=== PATIENT | male | born 1945 ===

== ENCOUNTER 2016-12-16 13:20 | Emergency (ER) | payer BC, MEDICARE ==
[2016-12-16 13:44] VITALS: BP 132/65; PULSE 91; RESP 18; O2SAT 100
[2016-12-16] MEDS ORDERED: Sodium Chloride 0.9% 500 ML IV STA (14:36)
[2016-12-16] MEDS ORDERED: Clindamycin 600 MG in Sodium Chloride 0.9% 100 ML IVPB STA (14:36)
--- NOTE | 2016-12-16 14:38 | ED PDOC ---
Lower Extremity Pain/Injury Time Seen by Provider: 12/16/16 14:12 Chief Complaint (Nursing): Lower Extremity Problem/Injury Chief Complaint (Provider): Knee pain History Per: Patient History/Exam Limitations: no limitations Onset/Duration Of Symptoms: Days (1 month) Current Symptoms Are (Timing): Still Present Additional Complaint(s): Pt. with left knee pain. Was here approx 1 month ago for knee pain and dx with possible abscess on the knee. Pt. did not want to be admitted and was dc with clinda. He fu with his orthopedic doctor and had purulent dc drained and continued clinda. Got better. Then again recently got swelling of the left knee and seen by the ortho doctor 2 days ago. He said will need more testing and sent to a specialty hospital in [place]. 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 He is here today as he wants antibiotics. Pt. had 2 knee surgeries, last 6 months ago in [facility]. Pt. denies numbness, tingles, calf pain, dyspnea. No fever. Has pain to the knee left and swelling. Difficulty moving it fully. Ambulated with pain. Past Medical History Reviewed: Nursing Documentation, Vital Signs Vital Signs: Last Vital Signs Temp 98.3 F 12/16/16 13:43 Pulse 91 H 12/16/16 13:43 Resp 18 12/16/16 13:43 BP 132/65 12/16/16 13:43 Pulse Ox 100 12/16/16 13:43 - Medical History PMH: Diabetes, HTN - Surgical History Other surgeries: knee surgery x2 - Family History Family History: States: Unknown Family Hx - Social History Current smoker - smoking cessation education provided: No Alcohol: None Drugs: Denies - Home Medications Home Medications: Ambulatory Orders Medication Instructions Recorded Clindamycin [Cleocin] 300 mg PO TID #21 cap 11/15/16 traMADol [Ultram] 50 mg PO TID PRN #12 tab 11/15/16 - Allergies Allergies/Adverse Reactions: Allergies Allergy/AdvReac Type Severity Reaction Status Date / Time Penicillins Allergy ANAPHYLAXIS Verified 11/15/16 13:25 Review of Systems ROS Statement: Except As Marked, All Systems Reviewed And Found Negative Musculoskeletal: Positive for: Leg Pain Skin: Positive for: Other (swelling of knee and bumps on knee that are abscess per pt.) Physical Exam - Reviewed Nursing Documentation Reviewed: Yes Vital Signs Reviewed: Yes - Physical Exam Appears: Positive for: Non-toxic, No Acute Distress Head Exam: Positive for: ATRAUMATIC, NORMAL INSPECTION, NORMOCEPHALIC Eye Exam: Positive for: EOMI, Normal appearance, PERRL ENT: Positive for: Normal ENT Inspection Neck: Positive for: Normal, Painless ROM Cardiovascular/Chest: Positive for: Regular Rate, Rhythm Respiratory: Positive for: CNT, Normal Breath Sounds Pulses-Dorsalis Pedis (L): 2+ Pulses-Post. Tibialis (L): 2+ Gastrointestinal/Abdominal: Positive for: Normal Exam, Bowel Sounds, Soft. Negative for: Tenderness Back: Positive for: Normal Inspection. Negative for: L CVA Tenderness, R CVA Tenderness Extremity: Positive for: Tenderness (L knee diffuse with 1cm raised fluctuant area anterior medial that is not erythematous), Other (popliteal pulse 2+ L). Negative for: Calf Tenderness Neurologic/Psych: Positive for: Alert, Oriented - Laboratory Results Result Diagrams: 12/16/16 15:20 12/16/16 15:20 Interpretation Of Abn Labs: no acute - ECG O2 Sat by Pulse Oximetry: 100 Pulse Ox Interpretation: Normal - Progress ED Course And Treament: 1452: Stable. AAOx3. Spoke with Dr. Patiño. Pt. well known to him. States he has cultured this bubble on his knee 2 days ago. So far no growth. He has seen a sling operator yesterday. He is to see a specialist Dr. Karthikeyan rawls for further evaluation. Per. Dr. Patiño pt. bubble on knee is of unknown cause and is being worked up extensively. Wants pt. to get basic blood work and dc if no high wbc. Pt. is suppose to see Dr. Muha. Joseph who has rx clinda that pt. is on. Can fu with Dr. Patiño Monday. 1733: Stable. AAOx3. Pt. to fu with Dr. Faye, olimpia Damon, and Dr. Napier. Pt. continue clinda as rx by Marisol who he saw few days ago. Disposition - Clinical Impression Clinical Impression: Abscess - Patient ED Disposition Is Patient to be Admitted: No Counseled Patient/Family Regarding: Studies Performed, Diagnosis, Need For Followup - Disposition Referrals: Rani Barbosa MD [Staff Provider] - 12/19/16 Disposition: Routine/Home Disposition Time: 17:35 Condition: STABLE Additional Instructions: Return if not better in 3 days. See your orthopedic doctor and Dr. Napier Monday next week. Also Dr. Smith. Instructions: Abscess (ED)
[2016-12-16 15:30] LABS: BASO % 0.1 % (0.0-2.0); EOS % 0.6 % (0.0-4.0); HEMATOCRIT 37.3 % (35.0-51.0); LYMPH # 0.8 K/uL (1.0-4.3); LYMPH % 11.8 % (20.0-40.0); MEAN CORPUSCULAR HEMOGLOBIN 27.4 pg (27.0-31.0); MEAN CORPUSCULAR HGB CONC 32.6 g/dL (33.0-37.0); MEAN PLATELET VOLUME 9.2 fl (7.2-11.7); MONO # 0.4 K/uL (0.0-0.8); MONO % 5.3 % (0.0-10.0); NEUT # 5.8 K/uL (1.8-7.0); NEUT % 82.2 % (50.0-75.0); RED CELL DISTRIBUTION WIDTH 15.9 % (11.5-14.5)
[2016-12-16 15:48] LABS: ALKALINE PHOSPHATASE 102 U/L (38-126); ALT/SGPT 24 U/L (21-72); AST/SGOT 30 U/L (17-59); BILIRUBIN,TOTAL 1.3 mg/dl (0.2-1.3); BLOOD UREA NITROGEN 23 mg/dl (9-20); CARBON DIOXIDE 26 mmol/L (22-30); CHLORIDE 102 mmol/L (98-107); GFR AFRICAN-AMERICAN > 60; GLUCOSE,RANDOM 114 mg/dL (75-110); POTASSIUM 4.3 MMOL/L (3.6-5.0); SODIUM 141 mmol/l (132-148); TOTAL PROTEIN 7.9 G/DL (6.3-8.2)
[2016-12-16 15:49] LABS: PARTIAL THROMBOPLASTIN TIME 30.2 SECONDS (23.3-32.5)
[2016-12-16 16:06] LABS: VENOUS BLOOD GAS BASE EXCESS 2.4 mmol/L (0.0-2.0); VENOUS BLOOD GAS PCO2 51 mmHg (40-60); VENOUS BLOOD PH 7.36 (7.32-7.43)
[2016-12-16 18:18] VITALS: TEMP 98.3
== END 2016-12-16 17:50 | disposition home or self-care (01) ==
LOC: H.ER 13:20
DX: L02.91 Cutaneous abscess, unspecified (principal); E11.9 Type 2 diabetes mellitus without complications; I10 Essential (primary) hypertension
CPT/HCPCS: 80053; 82803; 85025; 85610; 85730; 87040; 96360; 96365; 99284; J7040

== ENCOUNTER 2017-09-13 13:27 | Inpatient (IN) | payer MEDICARE, OTHER ==
[2017-09-13 13:38] VITALS: BMI 23.8
[2017-09-13] MEDS ORDERED: Naloxone 0.4 mg/ml Inj (Adult) IVP STA (13:39)
[2017-09-13] MEDS ORDERED: Naloxone 0.4 mg/ml Inj (Adult) ONE (13:41)
[2017-09-13] MEDS ORDERED: Sodium Chloride 0.9% 1,000 ML IV SCH (13:45)
--- NOTE | 2017-09-13 13:47 | ED PDOC ---
HPI: General Adult Time Seen by Provider: 09/13/17 13:35 Chief Complaint (Provider): Altered Mental Status History Per: Patient History/Exam Limitations: clinical condition Current Symptoms Are (Timing): Still Present Additional Complaint(s): Pt. was found sleeping and not responding to police while at the [facility]. Pt. not responding to verbal commands, but response with withdrawing. No tpa as pt. could have fallen and hurt head, onset is unclear but likely symptoms ongoing for a long time. NIHSS Stroke Scale - Date/Time Evaluation Performed Date Performed: 09/13/17 Time Performed: 14:00 When Was NIHSS Performed: Baseline - How Severe is the Stroke Level of Consciousness: 2=Obtunded LOC to Questions: 2=Neither correct LOC to commands: 2=Neither correct Best Gaze: 0=Normal Visual: 0=No visual loss Facial: 0=Normal Motor Arm - Left: 2=Falls before 10 sec Motor Arm - Right: 2=Falls before 10 sec Motor Leg - Left: 2=Falls before 5 sec Motor Leg - Right: 2=Falls before 5 sec Limb Ataxia: 2=Present both Sensory: 0=Normal Best Language: 2=Severe aphasia Dysarthia: 2=Severe, near unintelligible or worse Extinction & Inattention (Neglect): 0=Normal, no object Score: 20 rTPA Inclusion/Exclusion - Refusal of Treatment Patient Refused Treatment: No - Inclusion Criteria for Altepase Patient is 18 years or Older: Yes The Clinical Diagnosis of Ischemic Stroke That is Causing a Potentially Disabling Neurological Deficit: No Time of Onset is Well Established to be Less Than 270 Minute Before Treatment Would Begin: No Risk/Benefit Discussed With Patient/Family Member Present: No Past Medical History Reviewed: Historical Data, Nursing Documentation, Vital Signs - Medical History PMH: Dementia, HTN - Surgical History Other surgeries: knee surgery - Family History Family History: States: Unknown Family Hx - Home Medications Home Medications: Ambulatory Orders Medication Instructions Recorded Donepezil [Aricept] 10 mg PO HS 09/13/17 Doxycycline Hyclate [Doxycycline 100 mg PO BID 09/13/17 Hyclate] Gabapentin [Neurontin] 100 mg PO HS 09/13/17 Levothyroxine [Synthroid] 175 mcg PO DAILY 09/13/17 Solifenacin Succinate [Vesicare] 10 mg PO DAILY 09/13/17 Tamsulosin [Flomax] 0.8 mg PO QPM 09/13/17 Travoprost [Travatan Z] 1 drop EACHEYE HS 09/13/17 - Allergies Allergies/Adverse Reactions: Allergies Allergy/AdvReac Type Severity Reaction Status Date / Time Penicillins Allergy ANAPHYLAXIS Verified 09/13/17 13:44 Review of Systems Review Of Systems: ROS cannot be obtained secondary to pt's inabilty to answer questions. Physical Exam - Reviewed Nursing Documentation Reviewed: Yes Vital Signs Reviewed: Yes - Physical Exam Appears: Positive for: Uncomfortable Head Exam: Positive for: ATRAUMATIC, NORMAL INSPECTION, NORMOCEPHALIC Skin: Positive for: Normal Color, Warm, DRY Eye Exam: Positive for: PERRL. Negative for: Periorbital tenderness ENT: Positive for: Normal ENT Inspection, Other (gag present). Negative for: Nasal Congestion, Pharyngeal Erythema, Tonsillar Exudate Neck: Positive for: Supple, Trachea Midline Cardiovascular/Chest: Positive for: Regular Rate, Rhythm Respiratory: Positive for: CNT, Normal Breath Sounds Gastrointestinal/Abdominal: Positive for: Bowel Sounds, Soft. Negative for: Tenderness Back: Positive for: Normal Inspection. Negative for: L CVA Tenderness, R CVA Tenderness Extremity: Negative for: Tenderness, Pedal Edema Neurologic/Psych: Positive for: Other (moving extremities some on his own; movement present with pain.). Negative for: Alert, Oriented - Laboratory Results Interpretation Of Abn Labs: no acute - ECG ECG: Positive for: Interpreted By Me, Viewed By Me ECG Rhythm: Positive for: Normal QRS, Sinus Rhythm, Nonspecific Changes - Radiology X-Ray: Read By Radiologist X-Ray Interpretation: No Acute Disease - CT Scan/US head Other Rad Studies (CT/US): Read By Radiologist Other Rad Interpretation: no acute - Progress ED Course And Treament: 1415: Narcan was given. Pt. moving all extremities. Still no fluent verbal communication. Spoke with daughter and . States he was been diagnosed with dementia for months. Has been sleep and weak off and on for a while. Came to the ED 6 years ago for the same and didn't finding anything at that time. Has hx of strokes, htn, dementia, lyme dz, thyroid dz. 1529: wants lumbar x-ray. Spoke with Harish for Dr. Barbosa. Will admit tele. Dr. Ha for neurology. Stable. Pt. moving all extremities. More responsive. - Critical Care Total Time (In Min): 30 Documented Critical Care: Time excludes all time spent performint seperately billable procedures Disposition - Clinical Impression Clinical Impression: Altered mental status - Patient ED Disposition Is Patient to be Admitted: No Counseled Patient/Family Regarding: Studies Performed, Diagnosis - Disposition Disposition Time: 15:30 Condition: FAIR - Pt Status Changed To: Hospital Disposition Of: Inpatient - Admit Certification Admit to Inpatient:: After my assessment, the patient will require hospitalization for at least two midnights. This is because of the severity of symptoms shown, intensity of services needed, and/or the medical risk in this patient being treated as an outpatient. - POA Present On Arrival: Falls Or Trauma (?)
--- NOTE | 2017-09-13 13:58 | CT ---
PROCEDURE: CT HEAD WITHOUT CONTRAST. HISTORY: headache COMPARISON: 09/01/2011 CT head outside exam TECHNIQUE: Axial computed tomography images were obtained through the head/brain without intravenous contrast. Radiation dose: Total exam DLP = 1289 mGy-cm. This CT exam was performed using one or more of the following dose reduction techniques: Automated exposure control, adjustment of the mA and/or kV according to patient size, and/or use of iterative reconstruction technique. FINDINGS: HEMORRHAGE: No intracranial hemorrhage. BRAIN: No mass effect or edema. Cerebral atrophy and bilateral periventricular and subcortical white matter hypodensity compatible with chronic microvascular ischemic changes. These appearances are similar dating back to 2010. VENTRICLES: The mild ventriculomegaly is commensurate with the degree of atrophy and similar-appearing CALVARIUM: Unremarkable. PARANASAL SINUSES: Minimal mucosal thickening of the ethmoid ill air cells primarily -this also ethmoidal sinus postsurgical changes suggested an bilateral antrostomies noted. Findings are similar MASTOID AIR CELLS: Unremarkable as visualized. No inflammatory changes. OTHER FINDINGS: None. IMPRESSION: Cerebral atrophy andbilateral periventricular and subcortical white matter hypodensity compatible with chronic microvascular ischemic changes. These appearances are similar dating back to 2010. No interval intracranial hemorrhage or mass effect appreciated no gross interval changes in the overall white matter hypodense appearance. Mild ethmoidal sinus inflammatory changes -postsurgical changes - similar.
[2017-09-13 13:59] LABS: BASO # 0.1 K/uL (0.0-0.2); BASO % 0.4 % (0.0-2.0); EOS # 0.2 K/uL (0.0-0.7); EOS % 1.4 % (0.0-4.0); HEMOGLOBIN 12.4 g/dL (12.0-18.0); LYMPH # 2.7 K/uL (1.0-4.3); LYMPH % 22.4 % (20.0-40.0); MEAN CELL VOLUME 85.8 fl (80.0-94.0); MEAN CORPUSCULAR HEMOGLOBIN 27.9 pg (27.0-31.0); MEAN CORPUSCULAR HGB CONC 32.6 g/dL (33.0-37.0); MEAN PLATELET VOLUME 9.1 fl (7.2-11.7); MONO # 0.7 K/uL (0.0-0.8); MONO % 5.7 % (0.0-10.0); NEUT # 8.6 K/uL (1.8-7.0); NEUT % 70.1 % (50.0-75.0); RBC 4.43 Mil/uL (4.40-5.90); RED CELL DISTRIBUTION WIDTH 15.7 % (11.5-14.5); WHITE BLOOD COUNT 12.2 K/uL (4.8-10.8)
[2017-09-13 14:18] LABS: ALB/GLOB RATIO 1.2 (1.0-2.1); ALBUMIN 4.1 g/dL (3.5-5.0); ALT/SGPT 30 U/L (21-72); AST/SGOT 25 U/L (17-59); BLOOD UREA NITROGEN 20 mg/dl (9-20); CALCIUM 8.9 mg/dL (8.4-10.2); GFR AFRICAN-AMERICAN > 60; GFR NON-AFRICAN AMERICAN 54; HDL CHOLESTEROL 44 MG/DL (30-70)
[2017-09-13 14:28] LABS: LDL CHOLESTEROL 83 mg/dL (0-129)
[2017-09-13 14:35] LABS: INR 1.2 (0.9-1.2); PARTIAL THROMBOPLASTIN TIME 29.3 Seconds (25.6-37.1); PROTHROMBIN TIME 12.8 Seconds (9.8-13.1)
--- NOTE | 2017-09-13 15:05 | RAD ---
HISTORY: altered COMPARISON: No prior. FINDINGS: LUNGS: Shallow lung volumes. No consolidation. The perihilar bronchovascular markings and interstitial markings are diffusely of fairly symmetrically mildly prominent ; chronicity unknown. PLEURA: No significant pleural effusion identified, no pneumothorax apparent. CARDIOVASCULAR: Mild cardiomegaly. Ectatic thoracic aorta OSSEOUS STRUCTURES: Thoraco lumbar spondylosis. Right shoulder arthrosis. Apparent partial resection of the left lateral clavicle VISUALIZED UPPER ABDOMEN: Normal. OTHER FINDINGS: None. IMPRESSION: No dense consolidation. No gross congestive heart failure. The heart is mildly enlarged and thoracic aortic is ectatic. The central pulmonary vasculature/interstitial markings are also mildly prominent chronicity of these latter 3 findings unknown. Postsurgical changes lateral left clavicle Right shoulder arthrosis and thoracic spondylosis
[2017-09-13 16:30] LABS: ABG ALLEN TEST YES; ARTERIAL BLOOD GAS HCO3 24.5 mmol/L (21-28); ARTERIAL BLOOD GAS O2 SAT 97.8 % (95-98); ARTERIAL BLOOD GAS PCO2 33 mm/Hg (35-45); ARTERIAL BLOOD GAS PH 7.45 (7.35-7.45); ARTERIAL BLOOD GAS PO2 71 mm/Hg (80-100); ARTERIAL BLOOD GAS TCO2 23.9 mmol/L (22-28)
--- NOTE | 2017-09-13 17:03 | RAD ---
PROCEDURE: Radiographs of the Lumbar Spine. HISTORY: back pain COMPARISON: No prior. FINDINGS: BONES: Cervical spine straightening. No listhesis. No fracture. Diffuse thoraco lumbar spondylosis DISC SPACES: Diffuse thoraco lumbar disc space narrowing OTHER FINDINGS: Rightward mild convexity of the lumbar spine. Minimal bilateral sclerotic SI joint arthrosis right greater than left. Degenerative type wedging . No suspect compression fracture. IMPRESSION: Senescent spondylosis and degenerative disc disease changes. . No suspect fracture
[2017-09-13 17:25] LABS: BARBITURATES, UR NEGATIVE (NEGATIVE); BENZODIAZEPINES, UR NEGATIVE (NEGATIVE); OPIATES, UR NEGATIVE (NEGATIVE); PHENCYCLIDINE, UR NEGATIVE (NEGATIVE)
[2017-09-13 17:37] LABS: SQUAMOUS EPITHIAL 1 /hpf (0-5); URINE BACTERIA RARE (<OCC); URINE BILIRUBIN NEGATIVE (NEGATIVE); URINE BLOOD NEGATIVE (NEGATIVE); URINE CLARITY SLIGHTY-CLOUDY (Clear); URINE COLOR YELLOW (YELLOW); URINE GLUCOSE (UA) NEG (Normal); URINE LEUKOCYTE ESTERASE NEG Leu/uL (Negative); URINE NITRATE NEGATIVE (NEGATIVE); URINE PROTEIN 30 mg/dL (NEGATIVE); URINE UROBILINOGEN 0.2-1.0 mg/dL (0.2-1.0)
--- NOTE | 2017-09-13 20:44 | MRI ---
EXAM: MR Head Without Intravenous Contrast EXAM DATE/TIME: 09/13/2017 4:12 PM CLINICAL HISTORY: 72 years old, male; Signs and symptoms; Altered mental status/memory loss; Age related cognitive decline; Additional info: AMS TECHNIQUE: Magnetic resonance images of the head/brain without intravenous contrast in multiple planes. COMPARISON: Prior MRI of the brain of 07/03/2017 FINDINGS: LIMITATIONS: Mild to moderate streak/motion artifact. BRAIN: Extensive, confluent areas of increased T2 and FLAIR signal again seen in the white matter bilaterally, not significantly changed in appearance since the prior exam, most likely representing marked chronic small vessel ischemic changes, in a patient of this age. Stable appearance of susceptibility artifact in the the basal ganglia bilaterally, most likely secondary to physiologic calcification. Diffuse, marked, age-related cortical atrophy and ventriculomegaly. No other significant abnormality identified. No evidence of restricted diffusion/acute infarct. No acute extra-axial fluid collections visualized. No evidence of significant mass effect within the brain. VENTRICLES: See above. Cavum septum pellucidum, a normal variant. BONES/JOINTS: No acute bony abnormality identified. SINUSES: Mild mucosal thickening in the bilateral ethmoid sinuses. MASTOID AIR CELLS: Mastoid air cells appear clear. ORBITS: No acute intraorbital abnormality seen. IMPRESSION: - No evidence of acute infarct or other significant acute intracranial abnormality. - Extensive white matter signal abnormality, most likely secondary to marked chronic small vessel ischemic changes, in a patient of this age. - See above for remaining findings.
[2017-09-13] MEDS: Latanoprost 0.005% Opht SOUTION OU SCH (22:15)
[2017-09-13 23:46] LABS: MAGNESIUM 1.9 MG/DL (1.6-2.3)
[2017-09-14 06:52] LABS: BASO % 0.3 % (0.0-2.0); EOS # 0.2 K/uL (0.0-0.7); EOS % 2.4 % (0.0-4.0); HEMOGLOBIN 11.5 g/dL (12.0-18.0); LYMPH # 1.7 K/uL (1.0-4.3); LYMPH % 24.3 % (20.0-40.0); MEAN CELL VOLUME 85.3 fl (80.0-94.0); MEAN CORPUSCULAR HEMOGLOBIN 28.3 pg (27.0-31.0); MEAN CORPUSCULAR HGB CONC 33.2 g/dL (33.0-37.0); MEAN PLATELET VOLUME 9.2 fl (7.2-11.7); MONO # 0.5 K/uL (0.0-0.8); NEUT # 4.5 K/uL (1.8-7.0); RBC 4.07 Mil/uL (4.40-5.90); RED CELL DISTRIBUTION WIDTH 15.1 % (11.5-14.5); WHITE BLOOD COUNT 6.9 K/uL (4.8-10.8)
[2017-09-14 06:57] LABS: ALB/GLOB RATIO 1.1 (1.0-2.1); ALBUMIN 3.5 g/dL (3.5-5.0); ALT/SGPT 30 U/L (21-72); AST/SGOT 31 U/L (17-59); BLOOD UREA NITROGEN 14 mg/dl (9-20); CALCIUM 8.8 mg/dL (8.4-10.2); GFR AFRICAN-AMERICAN > 60; GFR NON-AFRICAN AMERICAN > 60
--- NOTE | 2017-09-14 07:20 | CP.PCM.HP ---
History of Present Illness - History of Present Illness History of Present Illness: pt admitted for syncope yesterday. 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 no f/c, n/v/d. mri/ct/xr noted. 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, white matter dz, "agent orange poisoning" at present full rom, no speech change, no facial droop Present on Admission - Present on Admission Any Indicators Present on Admission: No Review of Systems - Neurological Neurological: As Per HPI, Syncope Past Patient History - Past Social History Smoking Status: Never Smoked - CARDIAC Hx Cardiac Disorders: Yes Hx Hypertension: Yes - PULMONARY Hx Respiratory Disorders: No - NEUROLOGICAL Hx Dementia: Yes - HEENT Hx Glaucoma: Yes - RENAL Hx Chronic Kidney Disease: No Hx Dialysis: No - ENDOCRINE/METABOLIC Hx Hypothyroidism: Yes Other/Comment: full thyroid removed - HEMATOLOGICAL/ONCOLOGICAL Hx Blood Disorders: No Hx AIDS: No Hx Human Immunodeficiency Virus (HIV): No - INTEGUMENTARY Hx Dermatological Problems: No - MUSCULOSKELETAL/RHEUMATOLOGICAL Hx Musculoskeletal Disorders: Yes Hx Falls: Yes - GASTROINTESTINAL Hx Gastrointestinal Disorders: No - GENITOURINARY/GYNECOLOGICAL Hx Prostate Problems: Yes - PSYCHIATRIC Hx Substance Use: No - SURGICAL HISTORY Hx Surgeries: Yes Hx Joint Replacement: Yes (Left knee) Hx Thyroidectomy: Yes - ANESTHESIA Hx Anesthesia: Yes Hx Anesthesia Reactions: No Hx Malignant Hyperthermia: No Has any member of the family had a problem w/ anesthesia?: No Meds Allergies/Adverse Reactions: Allergies Allergy/AdvReac Type Severity Reaction Status Date / Time Penicillins Allergy ANAPHYLAXIS Verified 09/13/17 13:44 Physical Exam - Constitutional Appears: Well, Non-toxic, No Acute Distress - Head Exam Head Exam: ATRAUMATIC, NORMAL INSPECTION, NORMOCEPHALIC - Eye Exam Eye Exam: EOMI, Normal appearance, PERRL Pupil Exam: NORMAL ACCOMODATION, PERRL - ENT Exam ENT Exam: Mucous Membranes Moist, Normal Exam - Neck Exam Neck exam: Positive for: Normal Inspection - Respiratory Exam Respiratory Exam: Clear to Auscultation Bilateral, NORMAL BREATHING PATTERN - Cardiovascular Exam Cardiovascular Exam: REGULAR RHYTHM, RRR, +S1, +S2 - GI/Abdominal Exam GI & Abdominal Exam: Normal Bowel Sounds, Soft. absent: Tenderness - Extremities Exam Extremities exam: Positive for: full ROM, normal capillary refill, normal inspection, pedal pulses present - Back Exam Back exam: NORMAL INSPECTION - Neurological Exam Neurological exam: Alert, CN II-XII Intact, Normal Gait, Oriented x3, Reflexes Normal - Psychiatric Exam Psychiatric exam: Normal Affect, Normal Mood - Skin Skin Exam: Dry, Intact, Normal Color, Warm Results - Vital Signs Recent Vital Signs: Last Vital Signs Temp 97.6 F 09/14/17 05:49 Pulse 71 09/14/17 05:49 Resp 18 09/14/17 05:49 BP 143/80 09/14/17 05:49 Pulse Ox 99 09/14/17 05:49 - Labs Result Diagrams: 09/14/17 05:40 09/14/17 05:40 Labs: Laboratory Results - last 24 hr 09/13/17 09/13/17 09/13/17 13:45 13:52 13:52 WBC 12.2 H D RBC 4.43 Hgb 12.4 Hct 38.0 MCV 85.8 MCH 27.9 MCHC 32.6 L RDW 15.7 H Plt Count 224 MPV 9.1 Neut % (Auto) 70.1 Lymph % (Auto) 22.4 [place] % (Auto) 5.7 Eos % (Auto) 1.4 Baso % (Auto) 0.4 Neut # 8.6 H Lymph # 2.7 Jerome # 0.7 Eos # 0.2 Baso # 0.1 PT INR APTT pCO2 pO2 HCO3 ABG pH ABG Total CO2 ABG O2 Saturation ABG Base Excess Watson Test ABG Potassium A-a O2 Difference Glucose Lactate FiO2 Sodium 138 Potassium 4.2 Chloride 104 Carbon Dioxide 25 Anion Gap 13 BUN 20 Creatinine 1.3 Est GFR ( Amer) > 60 Est GFR (Non-Af Amer) 54 Random Glucose 175 H Hemoglobin A1c Calcium 8.9 Phosphorus Magnesium Total Bilirubin 0.8 AST 25 ALT 30 Alkaline Phosphatase 81 Ammonia < 9 L Troponin I < 0.0120 Total Protein 7.6 Albumin 4.1 Globulin 3.4 Albumin/Globulin Ratio 1.2 Triglycerides 102 Cholesterol 172 LDL Cholesterol Direct 83 HDL Cholesterol 44 Free T4 TSH 3rd Generation Arterial Blood Potassium Urine Color Urine Clarity Urine pH Ur Specific [place] Urine Protein Urine Glucose (UA) Urine Ketones Urine Blood Urine Nitrate Urine Bilirubin Urine Urobilinogen Ur Leukocyte Esterase Urine RBC (Auto) Urine Microscopic WBC Ur Squamous Epith Cells Urine Bacteria Hyaline Casts Urine Opiates Screen Urine Methadone Screen Ur Barbiturates Screen Ur Phencyclidine Scrn Ur Amphetamines Screen U Benzodiazepines Scrn U Oth Cocaine Metabols U Cannabinoids Screen Alcohol, Quantitative < 10 Blood Type Antibody Screen BBK History Checked 09/13/17 09/13/17 09/13/17 13:52 13:52 13:52 WBC RBC Hgb Hct MCV MCH MCHC RDW Plt Count MPV Neut % (Auto) Lymph % (Auto) [place] % (Auto) Eos % (Auto) Baso % (Auto) Neut # Lymph # [place] # Eos # Baso # PT 12.8 INR 1.2 APTT 29.3 pCO2 pO2 HCO3 ABG pH ABG Total CO2 ABG O2 Saturation ABG Base Excess Watson Test ABG Potassium A-a O2 Difference Glucose Lactate FiO2 Sodium Potassium Chloride Carbon Dioxide Anion Gap BUN Creatinine Est GFR ( Amer) Est GFR (Non-Af Amer) Random Glucose Hemoglobin A1c 5.8 Calcium Phosphorus Magnesium Total Bilirubin AST ALT Alkaline Phosphatase Ammonia Troponin I Total Protein Albumin Globulin Albumin/Globulin Ratio Triglycerides Cholesterol LDL Cholesterol Direct HDL Cholesterol Free T4 TSH 3rd Generation Arterial Blood Potassium Urine Color Urine Clarity Urine pH Ur Specific [place] Urine Protein Urine Glucose (UA) Urine Ketones Urine Blood Urine Nitrate Urine Bilirubin Urine Urobilinogen Ur Leukocyte Esterase Urine RBC (Auto) Urine Microscopic WBC Ur Squamous Epith Cells Urine Bacteria Hyaline Casts Urine Opiates Screen Urine Methadone Screen Ur Barbiturates Screen Ur Phencyclidine Scrn Ur Amphetamines Screen U Benzodiazepines Scrn U Oth Cocaine Metabols U Cannabinoids Screen Alcohol, Quantitative Blood Type O POSITIVE Antibody Screen Negative BBK History Checked Patient has bt 09/13/17 09/13/17 09/13/17 15:29 15:29 16:22 WBC RBC Hgb Hct MCV MCH MCHC RDW Plt Count MPV Neut % (Auto) Lymph % (Auto) [place] % (Auto) Eos % (Auto) Baso % (Auto) Neut # Lymph # Jerome # Eos # Baso # PT INR APTT pCO2 33 L pO2 71 L HCO3 24.5 ABG pH 7.45 ABG Total CO2 23.9 ABG O2 Saturation 97.8 ABG Base Excess -0.4 Watson Test Yes ABG Potassium 3.8 A-a O2 Difference 37.0 Glucose 112 H Lactate 0.7 FiO2 21.0 Sodium 138.0 Potassium Chloride 110.0 H Carbon Dioxide Anion Gap BUN Creatinine Est GFR ( Amer) Est GFR (Non-Af Amer) Random Glucose Hemoglobin A1c Calcium Phosphorus Magnesium Total Bilirubin AST ALT Alkaline Phosphatase Ammonia Troponin I Total Protein Albumin Globulin Albumin/Globulin Ratio Triglycerides Cholesterol LDL Cholesterol Direct HDL Cholesterol Free T4 2.03 TSH 3rd Generation 0.64 Arterial Blood Potassium 3.8 Urine Color Urine Clarity Urine pH Ur Specific [place] Urine Protein Urine Glucose (UA) Urine Ketones Urine Blood Urine Nitrate Urine Bilirubin Urine Urobilinogen Ur Leukocyte Esterase Urine RBC (Auto) Urine Microscopic WBC Ur Squamous Epith Cells Urine Bacteria Hyaline Casts Urine Opiates Screen Urine Methadone Screen Ur Barbiturates Screen Ur Phencyclidine Scrn Ur Amphetamines Screen U Benzodiazepines Scrn U Oth Cocaine Metabols U Cannabinoids Screen Alcohol, Quantitative Blood Type Antibody Screen BBK History Checked 09/13/17 09/13/17 09/13/17 17:02 17:02 23:30 WBC RBC Hgb Hct MCV MCH MCHC RDW Plt Count MPV Neut % (Auto) Lymph % (Auto) [place] % (Auto) Eos % (Auto) Baso % (Auto) Neut # Lymph # [place] # Eos # Baso # PT INR APTT pCO2 pO2 HCO3 ABG pH ABG Total CO2 ABG O2 Saturation ABG Base Excess Watson Test ABG Potassium A-a O2 Difference Glucose Lactate FiO2 Sodium Potassium Chloride Carbon Dioxide Anion Gap BUN Creatinine Est GFR ( Amer) Est GFR (Non-Af Amer) Random Glucose Hemoglobin A1c Calcium Phosphorus Magnesium Total Bilirubin AST ALT Alkaline Phosphatase Ammonia 9 L Troponin I Total Protein Albumin Globulin Albumin/Globulin Ratio Triglycerides Cholesterol LDL Cholesterol Direct HDL Cholesterol Free T4 TSH 3rd Generation Arterial Blood Potassium Urine Color Yellow Urine Clarity Slighty-cloudy Urine pH 6.0 Ur Specific [place] 1.013 Urine Protein 30 Urine Glucose (UA) Neg Urine Ketones Negative Urine Blood Negative Urine Nitrate Negative Urine Bilirubin Negative Urine Urobilinogen 0.2-1.0 Ur Leukocyte Esterase Neg Urine RBC (Auto) 1 Urine Microscopic WBC 1 Ur Squamous Epith Cells 1 Urine Bacteria Rare Hyaline Casts 3-5 H Urine Opiates Screen Negative Urine Methadone Screen Negative Ur Barbiturates Screen Negative Ur Phencyclidine Scrn Negative Ur Amphetamines Screen Negative U Benzodiazepines Scrn Negative U Oth Cocaine Metabols Negative U Cannabinoids Screen Negative Alcohol, Quantitative Blood Type Antibody Screen BBK History Checked 09/13/17 09/14/17 09/14/17 23:30 05:40 05:40 WBC 6.9 RBC 4.07 L Hgb 11.5 L Hct 34.8 L MCV 85.3 MCH 28.3 MCHC 33.2 RDW 15.1 H Plt Count 175 MPV 9.2 Neut % (Auto) 65.0 Lymph % (Auto) 24.3 [place] % (Auto) 8.0 Eos % (Auto) 2.4 Baso % (Auto) 0.3 Neut # 4.5 Lymph # 1.7 Jerome # 0.5 Eos # 0.2 Baso # 0.0 PT INR APTT pCO2 pO2 HCO3 ABG pH ABG Total CO2 ABG O2 Saturation ABG Base Excess Watson Test ABG Potassium A-a O2 Difference Glucose Lactate FiO2 Sodium 142 Potassium 3.9 Chloride 106 Carbon Dioxide 28 Anion Gap 12 BUN 14 Creatinine 1.0 Est GFR ( Amer) > 60 Est GFR (Non-Af Amer) > 60 Random Glucose 94 Hemoglobin A1c Calcium 8.8 Phosphorus 3.0 Magnesium 1.9 Total Bilirubin 1.1 AST 31 ALT 30 Alkaline Phosphatase 72 Ammonia Troponin I Total Protein 6.7 Albumin 3.5 Globulin 3.3 Albumin/Globulin Ratio 1.1 Triglycerides Cholesterol LDL Cholesterol Direct HDL Cholesterol Free T4 TSH 3rd Generation Arterial Blood Potassium Urine Color Urine Clarity Urine pH Ur Specific [place] Urine Protein Urine Glucose (UA) Urine Ketones Urine Blood Urine Nitrate Urine Bilirubin Urine Urobilinogen Ur Leukocyte Esterase Urine RBC (Auto) Urine Microscopic WBC Ur Squamous Epith Cells Urine Bacteria Hyaline Casts Urine Opiates Screen Urine Methadone Screen Ur Barbiturates Screen Ur Phencyclidine Scrn Ur Amphetamines Screen U Benzodiazepines Scrn U Oth Cocaine Metabols U Cannabinoids Screen Alcohol, Quantitative Blood Type Antibody Screen BBK History Checked Assessment & Plan (1) Syncope Assessment and Plan: mri noted eeg pending neuro consult pending bw noted pt/ot Status: Acute (2) DVT prophylaxis Assessment and Plan: scd nad ae hose ambulation lovenox if admitted over 24h Status: Acute (3) Altered mental status Assessment and Plan: neuro mri eeg appears to be congnitively intact at present Status: Acute Decision To Admit - Pt Status Changed To: Hospital Disposition Of: Inpatient - Admit Certification Admit to Inpatient:: After my assessment, the patient will require hospitalization for at least two midnights. This is because of the severity of symptoms shown, intensity of services needed, and/or the medical risk in this patient being treated as an outpatient. - . Bed Request Type: Telemetry Admitting Physician: Rani Barbosa
--- NOTE | 2017-09-14 09:24 | CARD ---
APPROVED REPORT EKG Measurement Heart [id number] <Conclusion> Normal sinus rhythm Abnormal ECG
[2017-09-14] MEDS: Levothyroxine 175 MCG TAB PO SCH (10:28)
[2017-09-14 17:20] LABS: PROLACTIN 9.7 ng/mL (3.7-17.9)
--- NOTE | 2017-09-14 20:52 | CP.PCM.CON ---
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 as per mri needs follow up as an op discussed with him and his Past Patient History - Past Social History Smoking Status: Never Smoked - CARDIAC Hx Hypertension: Yes - PULMONARY Hx Respiratory Disorders: No - NEUROLOGICAL Hx Dementia: Yes - HEENT Hx Glaucoma: Yes - RENAL Hx Chronic Kidney Disease: No Hx Dialysis: No - ENDOCRINE/METABOLIC Hx Hypothyroidism: Yes Other/Comment: full thyroid removed - HEMATOLOGICAL/ONCOLOGICAL Hx Blood Disorders: No Hx AIDS: No Hx Human Immunodeficiency Virus (HIV): No - INTEGUMENTARY Hx Dermatological Problems: No - MUSCULOSKELETAL/RHEUMATOLOGICAL Hx Musculoskeletal Disorders: Yes Hx Falls: Yes - GASTROINTESTINAL Hx Gastrointestinal Disorders: No - GENITOURINARY/GYNECOLOGICAL Hx Prostate Problems: Yes - PSYCHIATRIC Hx Substance Use: No - SURGICAL HISTORY Hx Surgeries: Yes Hx Joint Replacement: Yes (Left knee) Hx Thyroidectomy: Yes - ANESTHESIA Hx Anesthesia: Yes Hx Anesthesia Reactions: No Hx Malignant Hyperthermia: No Has any member of the family had a problem w/ anesthesia?: No Meds Allergies/Adverse Reactions: Allergies Allergy/AdvReac Type Severity Reaction Status Date / Time Penicillins Allergy ANAPHYLAXIS Verified 09/13/17 13:44 - Medications Medications: Current Medications Acetaminophen (Tylenol 325mg Tab) 650 mg PO Q6 PRN PRN Reason: Headache Last Admin: 09/14/17 15:10 Dose: 650 mg Donepezil HCl (Aricept) 10 mg PO HS [facility] Last Admin: 09/13/17 22:14 Dose: 10 mg Gabapentin (Neurontin) 100 mg PO HS [facility] Last Admin: 09/13/17 22:14 Dose: 100 mg Latanoprost (Xalatan Opht) 1 drop OU HS [facility] Last Admin: 09/13/17 22:15 Dose: 1 drop Levothyroxine Sodium (Synthroid) 175 mcg PO DAILY [facility] Last Admin: 09/14/17 10:28 Dose: 175 mcg Tamsulosin HCl (Flomax) 0.8 mg PO QPM [facility] Last Admin: 09/14/17 18:43 Dose: 0.8 mg Results - Vital Signs Recent Vital Signs: Last Vital Signs Temp 98.5 F 09/14/17 20:42 Pulse 63 09/14/17 20:42 Resp 17 09/14/17 20:42 BP 119/73 09/14/17 20:42 Pulse Ox 95 09/14/17 20:42 - Labs Result Diagrams: 09/14/17 05:40 09/14/17 05:40 Labs: Laboratory Results - last 24 hr 09/13/17 09/13/17 09/14/17 23:30 23:30 05:40 WBC 6.9 RBC 4.07 L Hgb 11.5 L Hct 34.8 L MCV 85.3 MCH 28.3 MCHC 33.2 RDW 15.1 H Plt Count 175 MPV 9.2 Neut % (Auto) 65.0 Lymph % (Auto) 24.3 [place] % (Auto) 8.0 Eos % (Auto) 2.4 Baso % (Auto) 0.3 Neut # 4.5 Lymph # 1.7 [place] # 0.5 Eos # 0.2 Baso # 0.0 Sodium Potassium Chloride Carbon Dioxide Anion Gap BUN Creatinine Est GFR ( Amer) Est GFR (Non-Af Amer) Random Glucose Calcium Phosphorus 3.0 Magnesium 1.9 Total Bilirubin AST ALT Alkaline Phosphatase Ammonia 9 L Total Protein Albumin Globulin Albumin/Globulin Ratio Vitamin B12 Prolactin 9.7 09/14/17 05:40 WBC RBC Hgb Hct MCV MCH MCHC RDW Plt Count MPV Neut % (Auto) Lymph % (Auto) [place] % (Auto) Eos % (Auto) Baso % (Auto) Neut # Lymph # [place] # Eos # Baso # Sodium 142 Potassium 3.9 Chloride 106 Carbon Dioxide 28 Anion Gap 12 BUN 14 Creatinine 1.0 Est GFR ( Amer) > 60 Est GFR (Non-Af Amer) > 60 Random Glucose 94 Calcium 8.8 Phosphorus Magnesium Total Bilirubin 1.1 AST 31 ALT 30 Alkaline Phosphatase 72 Ammonia Total Protein 6.7 Albumin 3.5 Globulin 3.3 Albumin/Globulin Ratio 1.1 Vitamin B12 346 Prolactin
[2017-09-14] MEDS: Latanoprost 0.005% Opht SOUTION OU SCH (22:09)
[2017-09-15 00:36] VITALS: RESP 18
--- NOTE | 2017-09-15 02:25 | CON ---
DATE: 09/14/2017 UNIT NUMBER: [id number] REASON FOR THE CONSULTATION: Syncopal attack. CHIEF COMPLAINT: Patient was brought in to [facility] with history of syncopal attack. From neurological point of view, I was called to evaluate him for further management. HISTORY OF PRESENT ILLNESS: Mr. 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 No history of witnessed tonic-clonic activities. No bowel and bladder incontinence. History of similar episode happened 4 years ago. He had been admitted in [facility], had been worked up but no diagnosis was made. PAST MEDICAL HISTORY: Patient was diagnosed to have white matter disease by local neurologist and has been on medication and treated for dementia at present. PAST SURGICAL HISTORY: Bilateral knee replacement. PERSONAL HISTORY: Denies smoking or alcohol use. He is a retired recruitment officer. REVIEW OF SYSTEMS: A 12-point systems had been reviewed. From neurology, syncopal attack. PHYSICAL EXAMINATION: VITAL SIGNS: Blood pressure 144/80, mean arterial pressure of 101, respiratory rate 16, temperature afebrile. NECK: Supple. No carotid bruit. HEART: Sounds regular. CHEST: Fair air entry. EXTREMITIES: No edema in legs. NEUROLOGICAL: Mental status examination: He is awake, alert, oriented to person, place, and time; however, he could not able to recall his medication and recall his diseases. Constantly he is distractible and tangential thoughts. Speech is normal. Cranial nerve examination: Visual ng intact. Pupils reactive to light. Extraocular movement normal. No nystagmus. No facial sensory deficit. No facial asymmetry. Hearing is normal. Tongue is midline. Good gag. Motor examination: On outstretched hand with eyes closed, no drift noted. Power is symmetric on either side. Deep tendon reflexes: Biceps, brachioradialis, triceps 1+; both knees are absent; both ankles are absent. Plantars are downgoing. Sensory examination: Significant bilateral distal sensory motor neuropathy. Gait normal. DIAGNOSTIC DATA: MRI of the brain has been reviewed. It showed extensive white matter disease consistent with small vessel disease. EKG, normal sinus rhythm. Blood workup: WBC 6.9, hemoglobin 11.5, hematocrit 34.8, platelet 175, PT 12.8, INR 1.2, PTT 29.3. Sodium 142, potassium 3.9, chloride 106, bicarbonate 28, BUN 14, creatinine 1.0, GFR more than 60, ammonia level 9, triglyceride 102, cholesterol 172, LDL 83, HDL 44, B12 of 346, prolactin 9.7. Urine toxicology negative. CONCLUSION: Mr. Victorino Celeste has been presenting with recurrent episode of synocopal attack. From neurological point of view, seizure should be ruled out. 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 Patient's electroencephalogram has been reviewed showed bilateral slow activities without any paroxysmal activities. RECOMMENDATION: 1. Patient should have followup visit with me as outpatient. Patient may need ambulatory electroencephalogram, which can be done as outpatient. 2. Continue the present management, nutritional supplement and antiplatelet for stroke prophylaxis including statin and angiotensin receptor blockers. 3. If medically stable, patient can be discharged and follow up with me as outpatient. Jamaal Cameron MD
--- NOTE | 2017-09-15 08:03 | CP.PCM.DIS ---
Provider - Provider Date of Admission: 09/13/17 15:31 Attending physician: Rani Barbosa MD Time Spent in preparation of Discharge (in minutes): 15 Diagnosis - Discharge Diagnosis (1) Syncope Status: Acute (2) DVT prophylaxis Status: Acute (3) Altered mental status Status: Acute Hospital Course - Lab Results Lab Results: Most Recent Lab Values WBC 6.9 K/uL (4.8-10.8) 09/14/17 05:40 RBC 4.07 Mil/uL (4.40-5.90) L 09/14/17 05:40 Hgb 11.5 g/dL (12.0-18.0) L 09/14/17 05:40 Hct 34.8 % (35.0-51.0) L 09/14/17 05:40 MCV 85.3 fl (80.0-94.0) 09/14/17 05:40 MCH 28.3 pg (27.0-31.0) 09/14/17 05:40 MCHC 33.2 g/dL (33.0-37.0) 09/14/17 05:40 RDW 15.1 % (11.5-14.5) H 09/14/17 05:40 Plt Count 175 K/uL (130-400) 09/14/17 05:40 MPV 9.2 fl (7.2-11.7) 09/14/17 05:40 Neut % (Auto) 65.0 % (50.0-75.0) 09/14/17 05:40 Lymph % (Auto) 24.3 % (20.0-40.0) 09/14/17 05:40 [place] % (Auto) 8.0 % (0.0-10.0) 09/14/17 05:40 Eos % (Auto) 2.4 % (0.0-4.0) 09/14/17 05:40 Baso % (Auto) 0.3 % (0.0-2.0) 09/14/17 05:40 Neut # 4.5 K/uL (1.8-7.0) 09/14/17 05:40 Lymph # 1.7 K/uL (1.0-4.3) 09/14/17 05:40 [place] # 0.5 K/uL (0.0-0.8) 09/14/17 05:40 Eos # 0.2 K/uL (0.0-0.7) 09/14/17 05:40 Baso # 0.0 K/uL (0.0-0.2) 09/14/17 05:40 PT 12.8 Seconds (9.8-13.1) 09/13/17 13:52 INR 1.2 (0.9-1.2) 09/13/17 13:52 APTT 29.3 Seconds (25.6-37.1) 09/13/17 13:52 pCO2 33 mm/Hg (35-45) L 09/13/17 16:22 pO2 71 mm/Hg (80-100) L 09/13/17 16:22 HCO3 24.5 mmol/L (21-28) 09/13/17 16:22 ABG pH 7.45 (7.35-7.45) 09/13/17 16:22 ABG Total CO2 23.9 mmol/L (22-28) 09/13/17 16:22 ABG O2 Saturation 97.8 % (95-98) 09/13/17 16:22 ABG Base Excess -0.4 mmol/L (-2.0-3.0) 09/13/17 16:22 [place] Test Yes 09/13/17 16:22 ABG Potassium 3.8 mmol/L (3.6-5.2) 09/13/17 16:22 A-a O2 Difference 37.0 mm/Hg 09/13/17 16:22 Sodium 138.0 mmol/L (132-148) 09/13/17 16:22 Chloride 110.0 mmol/L (98-107) H 09/13/17 16:22 Glucose 112 mg/dL (75-110) H 09/13/17 16:22 Lactate 0.7 mmol/L (0.7-2.1) 09/13/17 16:22 FiO2 21.0 % 09/13/17 16:22 Sodium 142 mmol/l (132-148) 09/14/17 05:40 Potassium 3.9 MMOL/L (3.6-5.0) 09/14/17 05:40 Chloride 106 mmol/L (98-107) 09/14/17 05:40 Carbon Dioxide 28 mmol/L (22-30) 09/14/17 05:40 Anion Gap 12 (10-20) 09/14/17 05:40 BUN 14 mg/dl (9-20) 09/14/17 05:40 Creatinine 1.0 mg/dl (0.8-1.5) 09/14/17 05:40 Est GFR ( Amer) > 60 09/14/17 05:40 Est GFR (Non-Af Amer) > 60 09/14/17 05:40 Random Glucose 94 mg/dL (75-110) 09/14/17 05:40 Hemoglobin A1c 5.8 % (4.2-6.5) 09/13/17 13:52 Calcium 8.8 mg/dL (8.4-10.2) 09/14/17 05:40 Phosphorus 3.0 mg/dl (2.5-4.5) 09/13/17 23:30 Magnesium 1.9 MG/DL (1.6-2.3) 09/13/17 23:30 Total Bilirubin 1.1 mg/dl (0.2-1.3) 09/14/17 05:40 AST 31 U/L (17-59) 09/14/17 05:40 ALT 30 U/L (21-72) 09/14/17 05:40 Alkaline Phosphatase 72 U/L (38-126) 09/14/17 05:40 Ammonia 9 umo/L (16-60) L 09/13/17 23:30 Troponin I < 0.0120 ng/mL (0.00-0.120) 09/13/17 13:52 Total Protein 6.7 G/DL (6.3-8.2) 09/14/17 05:40 Albumin 3.5 g/dL (3.5-5.0) 09/14/17 05:40 Globulin 3.3 gm/dL (2.2-3.9) 09/14/17 05:40 Albumin/Globulin Ratio 1.1 (1.0-2.1) 09/14/17 05:40 Triglycerides 102 mg/DL (0-149) 09/13/17 13:52 Cholesterol 172 mg/dL (0-199) 09/13/17 13:52 LDL Cholesterol Direct 83 mg/dL (0-129) 09/13/17 13:52 HDL Cholesterol 44 MG/DL (30-70) 09/13/17 13:52 Vitamin B12 346 pg/mL (239-931) 09/14/17 05:40 Free T4 2.03 ng/dL (0.78-2.19) 09/13/17 15:29 TSH 3rd Generation 0.64 mIU/ML (0.46-4.68) 09/13/17 15:29 Prolactin 9.7 ng/mL (3.7-17.9) 09/13/17 23:30 Arterial Blood Potassium 3.8 mmol/L (3.6-5.2) 09/13/17 16:22 Urine Color Yellow (YELLOW) 09/13/17 17:02 Urine Clarity Slighty-cloudy (Clear) 09/13/17 17:02 Urine pH 6.0 (5.0-8.0) 09/13/17 17:02 Ur Specific [place] 1.013 (1.003-1.030) 09/13/17 17:02 Urine Protein 30 mg/dL (NEGATIVE) 09/13/17 17:02 Urine Glucose (UA) Neg mg/dL (Normal) 09/13/17 17:02 Urine Ketones Negative mg/dL (NEGATIVE) 09/13/17 17:02 Urine Blood Negative (NEGATIVE) 09/13/17 17:02 Urine Nitrate Negative (NEGATIVE) 09/13/17 17:02 Urine Bilirubin Negative (NEGATIVE) 09/13/17 17:02 Urine Urobilinogen 0.2-1.0 mg/dL (0.2-1.0) 09/13/17 17:02 Ur Leukocyte Esterase Neg [place]/uL (Negative) 09/13/17 17:02 Urine RBC (Auto) 1 /hpf (0-3) 09/13/17 17:02 Urine Microscopic WBC 1 /hpf (0-5) 09/13/17 17:02 Ur Squamous Epith Cells 1 /hpf (0-5) 09/13/17 17:02 Urine Bacteria Rare (<OCC) 09/13/17 17:02 Hyaline Casts 3-5 /hpf (0-2) H 09/13/17 17:02 Urine Opiates Screen Negative (NEGATIVE) 09/13/17 17:02 Urine Methadone Screen Negative (NEGATIVE) 09/13/17 17:02 Ur Barbiturates Screen Negative (NEGATIVE) 09/13/17 17:02 Ur Phencyclidine Scrn Negative (NEGATIVE) 09/13/17 17:02 Ur Amphetamines Screen Negative (NEGATIVE) 09/13/17 17:02 U Benzodiazepines Scrn Negative (NEGATIVE) 09/13/17 17:02 U Oth Cocaine Metabols Negative (NEGATIVE) 09/13/17 17:02 U Cannabinoids Screen Negative (NEGATIVE) 09/13/17 17:02 Alcohol, Quantitative < 10 mg/dl (0-10) 09/13/17 13:52 RPR Nonreactive (NONREACTIVE) 09/14/17 05:50 Blood Type O POSITIVE 09/13/17 13:52 Antibody Screen Negative 09/13/17 13:52 BBK History Checked Patient has bt 09/13/17 13:52 Discharge Exam - Head Exam Head Exam: ATRAUMATIC, NORMAL INSPECTION, NORMOCEPHALIC - Eye Exam Eye Exam: EOMI, Normal appearance, PERRL Pupil Exam: NORMAL ACCOMODATION, PERRL - Respiratory Exam Respiratory Exam: Clear to PA & Lateral, NORMAL BREATHING PATTERN, UNREMARKABLE - Cardiovascular Exam Cardiovascular Exam: REGULAR RHYTHM, RRR, +S1, +S2 - GI/Abdominal Exam GI & Abdominal Exam: Normal Bowel Sounds, Soft, Unremarkable - Extremities Exam Extremities exam: full ROM, normal capillary refill, normal inspection, pedal pulses present - Back Exam Back exam: FULL ROM - Neurological Exam Neurological exam: Alert, CN II-XII Intact, Normal Gait, Oriented x3, Reflexes Normal - Psychiatric Exam Psychiatric exam: Normal Affect, Normal Mood - Skin Skin Exam: Dry, Intact, Normal Color, Warm Discharge Plan - Discharge Medications Prescriptions: Clopidogrel [Plavix] 75 mg PO DAILY #30 tab - Follow Up Plan Condition: FAIR Disposition: HOME/ ROUTINE Additional Instructions: f/u rmg 1 wk, neuro as directed. rted prn. meds pe rmed rec, plavix e-rx final dx-ams, likey r/t h/o white matter dz, syncope cleared by neuro for dc moving all ext 5/5, aox4 no complaints/distress, no f/c, n/v/d.
[2017-09-15] MEDS: Levothyroxine 175 MCG TAB PO SCH (08:59)
[2017-09-15 12:16] VITALS: BP 149/90; PULSE 77; TEMP 97.5; O2SAT 98
--- NOTE | 2017-09-15 12:54 | EEG ---
DATE: This is a 16-channel electroencephalogram of awake and drowsy adult. During the study, photic stimulation was performed. Hyperventilation was not performed. The resting electroencephalogram consisted of 20 to 30 microvolts, 4 to 5 Hz. Delta mixed with low-theta activity seen at parietal and occipital leads. Anteriorly, fast activity superimposed with 2 to 3 Hz delta activity seen. Intermittent movement artifact and muscle artifact contaminated the background rhythm. The photic stimulation did not evoke driving response noted at 2 to 20 Hz. IMPRESSION: This is a mildly abnormal electroencephalogram because of persistent slowing throughout the record suggestive of bilateral cerebral dysfunction. This is probably secondary to metabolic vascular degenerative process. Please correlate the finding with neurological and radiological studies. Jamaal Cameron MD
== END 2017-09-15 13:03 | disposition home or self-care (01) | DRG 312 ==
LOC: H.ER 13:27 → H.ERHOLD 15:31 → H.TEL 21:28
PROVIDERS: ADMIT Family Medicine; ATTEND Family Medicine
DX: R55 Syncope and collapse (principal); G62.9 Polyneuropathy, unspecified; F01.50 Vascular dementia, unspecified severity, without behavioral disturbance, psychotic disturbance, mood disturbance, and anxiety; E03.9 Hypothyroidism, unspecified; H40.9 Unspecified glaucoma; I10 Essential (primary) hypertension; Z79.899 Other long term (current) drug therapy; Z86.73 Personal history of transient ischemic attack (TIA), and cerebral infarction without residual deficits; Z96.653 Presence of artificial knee joint, bilateral; R90.82 White matter disease, unspecified